=== PATIENT | male | born 1950 | race Two or more races ===

== ENCOUNTER 2017-12-19 17:16 | Emergency (ER) | payer BC ==
[~2017-12-19] VITALS: Ht 172.7 cm; Wt 86.0 kg
[2017-12-19] MEDS ORDERED: LIDOCAINE 2%, 20ML SQ ONE (17:30)
[2017-12-19] MEDS ORDERED: DIPH,PERTUSS(ACELL),TET VAC/PF 0.5 ML IM-VACC ONE ×2 (17:30→17:44)
[2017-12-19] MEDS ORDERED: LIDOCAINE-MPF 2% ,5ML ONE (17:44)
[2017-12-19] MEDS ORDERED: ACETAMINOPHEN 500 MG TABLET PO ONE (19:30)
[2017-12-19] MEDS ORDERED: ACETAMINOPHEN 500 MG TABLET ONE (19:37)
[2017-12-19] MEDS ORDERED: BACITRACIN ZINC OINT 500U/GM, 0.9 GM ONE (19:38)
[2017-12-19 19:55] VITALS: BP 127/85
== END 2017-12-19 19:58 | disposition home or self-care (01) ==
LOC: ED 18:58
DX: S01.111A Laceration without foreign body of right eyelid and periocular area, initial encounter (principal); W01.0XXA Fall on same level from slipping, tripping and stumbling without subsequent striking against object, initial encounter; Y93.89 Activity, other specified; Y92.89 Other specified places as the place of occurrence of the external cause; Y99.8 Other external cause status
CPT/HCPCS: 12052; 70450; 70486; 90471; 90715; 99284; J3490